=== PATIENT | male | born 1945 | race Caucasian/White ===

== ENCOUNTER 2024-03-13 05:42 | Emergency (ER) | payer MEDICARE ==
[~2024-03-13] VITALS: Ht 188 cm; Wt 96.4 kg
[~2024-03-13 05:42] MED LIST: ASPIRIN E.C. 8181 MG PO; CRESTOR40 MG PO; ELIQUIS 5MG PO; NORVASC 10MG10 MG PO; PRINIVIL40 MG PO; ULTRAM 50MG TAB50 MG PO
[2024-03-13 05:47] VITALS: TEMP 98.1
[2024-03-13] MEDS ORDERED: Morphine 4 MG/ML VIAL IV ONE (06:00)
[2024-03-13] MEDS ORDERED: Ondansetron 4 MG/2 ML VIAL IV ONE (06:00)
[2024-03-13 06:44] LABS: BASO # 0.1 K/mm3 (0.0-0.2); BASO % 0.7 % (0.0-2.0); EOS # 0.1 K/mm3 (0.0-0.7); EOS % 1.6 % (0.0-4.0); GRAN # 4.7 K/mm3 (1.4-6.5); GRAN % 63.2 % (42.2-75.2); HEMOGLOBIN 14.1 g/dl (13.5-18.0); LYMPH # 1.7 K/mm3 (1.2-3.4); LYMPH % 22.7 % (20.0-51.0); MEAN CELL VOLUME 96 fl (80.0-100.0); MEAN CORPUSCULAR HEMOGLOBIN 34 pg (27-31); MEAN CORPUSCULAR HGB CONC 35 g/dl (33.0-37.0); MEAN PLATELET VOLUME 9.5 fl (7.4-10.4); MONO # 0.9 K/mm3 (0.1-0.6); MONO % 11.5 % (1.7-9.3); PLATELET COUNT 275 K/mm3 (130-400); RED BLOOD COUNT 4.15 M/mm3 (4.20-5.60); REDCELL DISTRIBUTION WIDTH-CV 12.2 % (11.5-14.5)
[2024-03-13 07:00] LABS: ALBUMIN 3.7 g/dL (3.4-4.8); BILIRUBIN,TOTAL 0.3 mg/dL (0.2-1.2); CALCIUM 9.2 mg/dL (8.4-10.2); CREATININE, serum 1.09 mg/dL (0.72-1.25); POTASSIUM 4.2 mEq/L (3.5-4.5); TOTAL PROTEIN 6.6 g/dl (6.2-8.1)
[2024-03-13] MEDS ORDERED: PREDNISONE20 MG PO (07:10)
[2024-03-13 07:26] VITALS: BP 151/82; PULSE 68
[2024-03-13] MEDS ORDERED: Home HYDROcodone/Acetaminophen 5/325 MG #4 TABS/PACK PO ONE (07:30)
== END 2024-03-13 07:32 | disposition home or self-care (01) ==
LOC: COL.ER 05:42
PROVIDERS: Emergency Medicine
DX: M51.16 Intervertebral disc disorders with radiculopathy, lumbar region (principal); Z98.890 Other specified postprocedural states
CPT/HCPCS: J2270; J2405